=== PATIENT | female | born 1990 | race Caucasian/White ===

== ENCOUNTER 2017-06-15 11:42 | Inpatient (IN) | payer MEDICAID ==
[~2017-06-15 11:42] MED LIST: EPHEDrine SULFATE 50 MG/5 ML SYG; OXYTOCIN 30 UNITS/LR 500 ML BAG IV; PHENYLephrine (100 MCG/ML) 5ML SYG
[2017-06-15] MEDS ORDERED: CARBOPROST 250 MCG INJ IM (14:00)
[2017-06-15] MEDS ORDERED: OXYTOCIN 30 UNITS/LR 500 ML IV (14:00)
[2017-06-15] MEDS ORDERED: METHYLERGONOVINE 0.2 MG INJ IM (14:00)
[2017-06-15] MEDS ORDERED: MISOPROSTOL 200 MCG TAB PR ×2 (14:00→20:00)
[2017-06-15 14:15] LABS: ADD MAN DIFF? NO
[2017-06-15 14:18] LABS: ABNORMAL IP MESSAGE 1; BASOPHILS % 0.3 % (0.0-2.0); EOSINOPHILS % 0.6 % (0.0-7.0); HEMATOCRIT 33.9 % (37.0-47.0); HEMOGLOBIN 10.5 g/dl (12.0-16.0); LYMPHOCYTES # 1.7 10^3/ul (0.8-2.9); LYMPHOCYTES % 25.1 % (15.0-51.0); MEAN CORPUSCULAR HEMOGLOBIN 23.9 pg (29.0-33.0); MONOCYTE # 0.7 10^3/ul (0.3-0.9); MONOCYTES % 9.4 % (0.0-11.0); NEUTROPHIL # 4.4 10^3/ul (1.6-7.5); NEUTROPHILS % 64.2 % (39.0-77.0); PLATELET COUNT 125 10^3/UL (140-415)
[2017-06-15 14:18] LABS: WHITE BLOOD COUNT 6.9 10^3/ul (4.8-10.8)
[2017-06-15 14:20] LABS: POSITIVE DIFF @See below
[2017-06-15] MEDS: LACTATED RINGER'S 1,000 ML IV ×3 (14:21→21:27)
[2017-06-15 14:33] LABS: INR 0.87; PROTIME 11.9 Sec (11.9-14.9); PT RATIO 0.9
[2017-06-15 14:34] LABS: PARTIAL THROMBOPLASTIN TIME 26.2 Sec (25.0-35.0)
[2017-06-15 15:10] LABS: HEPATITIS B SURFACE ANTIGEN NEGATIVE (NEGATIVE)
[2017-06-15] MEDS ORDERED: METOCLOPRAMIDE 10 MG INJ IV (16:30)
[2017-06-15 16:33] LABS: RAPID PLASMA REAGIN NONREACTIVE (NR)
[2017-06-15] MEDS ORDERED: ZOLPIDEM 5 MG TAB PO (17:30)
[2017-06-15] MEDS ORDERED: FENTAnyl 50 MCG/ML VIAL IV ×2 (17:30)
[2017-06-15] MEDS ORDERED: EPHEDrine SULFATE 50 MG/5 ML SYG IV (17:30)
[2017-06-15] MEDS ORDERED: DIPHENHYDRAMINE 50 MG INJ IV ×2 (17:30)
[2017-06-15] MEDS ORDERED: KETOROLAC 15 MG INJ IV (17:30)
[2017-06-15] MEDS ORDERED: ONDANSETRON 4 MG INJ IV ×2 (17:30)
[2017-06-15] MEDS ORDERED: hydrALAzine 20 MG INJ IV (17:30)
[2017-06-15] MEDS ORDERED: NALOXONE (0.4 MG/ML) INJ IV (17:30)
[2017-06-15] MEDS ORDERED: NALBUPHINE HCL (10 MG/1 ML) INJ IV (17:30)
[2017-06-15] MEDS ORDERED: HYDROmorphONE (0.2 MG/ML) 10ML SYG IV ×2 (17:30)
[2017-06-15] MEDS ORDERED: MEPERIDINE 25 MG INJ IV (17:30)
[2017-06-15] MEDS ORDERED: HYDROmorphONE 0.5 MG/0.5 ML SYG IV ×2 (17:30)
[2017-06-15] MEDS ORDERED: LABETALOL HCL 20MG INJ IV (17:30)
[2017-06-15] MEDS ORDERED: ALBUMIN HUMAN 5% 250 ML IV (17:30)
[2017-06-15] MEDS: ONDANSETRON 4 MG INJ IV (18:57)
[2017-06-15] MEDS: FAMOTIDINE 20 MG INJ IV (18:58)
[2017-06-15] MEDS: METOCLOPRAMIDE 10 MG INJ IV (18:58)
[2017-06-15] MEDS ORDERED: morphine SULFATE/PF (10 MG/10 ML) INJ (19:23)
[2017-06-15] MEDS: METOCLOPRAMIDE 10 MG INJ IM (19:30)
[2017-06-15] MEDS ORDERED: OXYTOCIN 10 UNIT INJ (19:46)
[2017-06-15] MEDS ORDERED: NA PHOSPHATE/BIPHOS 133 ML ENEMA PR (20:00)
[2017-06-15] MEDS: CEFAZOLIN 2 GM/50 ML (PMX) 50 ML IV (20:01)
[2017-06-15] MEDS ORDERED: MIDAZOLAM 1 MG/ML 2 ML INJ (20:29)
[2017-06-15] MEDS ORDERED: HYDROmorphONE 2 MG/ML SYG (20:30)
[2017-06-15] MEDS: SENNA/DOCUSATE NA (8.6MG/50MG) TAB PO (21:00)
[2017-06-15] MEDS: OXYTOCIN 30 UNITS/LR 500 ML IV (21:26)
[2017-06-15] MEDS: KETOROLAC 30 MG INJ IV (22:48)
[2017-06-16] MEDS: OXYTOCIN 30 UNITS/LR 500 ML IV ×3 (00:14→10:06)
[2017-06-16] MEDS: LACTATED RINGER'S 1,000 ML IV ×3 (05:47→16:02)
[2017-06-16] MEDS: IBUPROFEN 600 MG TAB PO ×5 (06:00→23:35)
[2017-06-16] MEDS: KETOROLAC 30 MG INJ IV ×2 (07:58→13:33)
[2017-06-16] MEDS: SENNA/DOCUSATE NA (8.6MG/50MG) TAB PO ×2 (07:58→20:31)
[2017-06-16 09:11] LABS: ADD MAN DIFF? NO
[2017-06-16 09:43] LABS: HEMATOCRIT 29.1 % (37.0-47.0); HEMOGLOBIN 9.2 g/dl (12.0-16.0); RED BLOOD COUNT 3.81 10^6/ul (4.20-5.40)
[2017-06-16 09:44] LABS: ABNORMAL IP MESSAGE 1; BASOPHILS % 0.2 % (0.0-2.0); EOSINOPHILS % 0.1 % (0.0-7.0); LYMPHOCYTES # 1.5 10^3/ul (0.8-2.9); LYMPHOCYTES % 14.7 % (15.0-51.0); MEAN CORPUSCULAR HEMOGLOBIN 24.1 pg (29.0-33.0); MEAN CORPUSCULAR HGB CONC 31.6 g/dl (32.0-37.0); MEAN CORPUSCULAR VOLUME 76.4 fl (82.0-101.0); MONOCYTE # 0.6 10^3/ul (0.3-0.9); MONOCYTES % 6.3 % (0.0-11.0); NEUTROPHIL # 7.8 10^3/ul (1.6-7.5); NEUTROPHILS % 78.3 % (39.0-77.0); PLATELET COUNT 122 10^3/UL (140-415); RED CELL DISTRIBUTION WIDTH 16.9 % (11.5-14.5)
[2017-06-16 09:53] LABS: POSITIVE DIFF @See below
[2017-06-16] MEDS: OXYCODONE/ACETAMINOPHEN (5/325) TAB PO (20:31)
[2017-06-17] MEDS: LANOLIN 7 GM TUBE TOP (02:37)
[2017-06-17] MEDS: IBUPROFEN 600 MG TAB PO ×4 (05:36→23:33)
[2017-06-17] MEDS: SENNA/DOCUSATE NA (8.6MG/50MG) TAB PO ×2 (09:16→21:11)
[2017-06-17] MEDS: INFLUENZA VIRUS VACCINE 0.5 ML (DISPENSING) IM* (09:18)
[2017-06-17] MEDS: OXYCODONE/ACETAMINOPHEN (5/325) TAB PO ×2 (11:28→17:41)
[2017-06-18] MEDS: OXYCODONE/ACETAMINOPHEN (5/325) TAB PO ×2 (01:27→16:01)
[2017-06-18] MEDS: IBUPROFEN 600 MG TAB PO ×2 (05:44→11:52)
[2017-06-18] MEDS: MEASLES,MUMPS,RUBELLA VACCINE INJ SC* (09:00)
[2017-06-18] MEDS: SENNA/DOCUSATE NA (8.6MG/50MG) TAB PO (11:52)
[2017-06-18] MEDS: DIPHTH/TET/ACEL PERTUSS (ADULT) 0.5 ML VIAL IM* (16:35)
== END 2017-06-18 18:00 | disposition home or self-care (01) | DRG 765 ==
LOC: OBT 11:42 → L-D 11:42 → OBT 12:55 → L-D 12:45 → PP1 23:16
PROVIDERS: Specialist
PROC: 10D00Z1 Extraction of Products of Conception, Low, Open Approach (ICD-10-PCS; principal; 2017-06-15 19:30)
PROC: 0UT70ZZ Resection of Bilateral Fallopian Tubes, Open Approach (ICD-10-PCS; 2017-06-15 19:30)
DX: O34.211 Maternal care for low transverse scar from previous cesarean delivery (principal); O60.14X0 Preterm labor third trimester with preterm delivery third trimester, not applicable or unspecified; K66.0 Peritoneal adhesions (postprocedural) (postinfection); O16.4 Unspecified maternal hypertension, complicating childbirth; Z30.2 Encounter for sterilization; Z37.0 Single live birth; Z3A.36 36 weeks gestation of pregnancy
CPT/HCPCS: 85025; 85610; 85730; 86592; 86850; 86900; 86901; 87340; 88302; 90686; 90715; 94760; 99464